=== PATIENT | female | born 1980 | race African-American/Black ===

== ENCOUNTER 2020-06-15 10:07 | Emergency (ER) | payer SELFPAY ==
[~2020-06-15] VITALS: Ht 170.2 cm; Wt 63.0 kg
[2020-06-15 10:13] VITALS: BP 138/84; Ht 170.2 cm; Wt 63.0 kg
== END 2020-06-15 11:40 | disposition home or self-care (01) ==
LOC: ED 10:07
DX: S01.81XD Laceration without foreign body of other part of head, subsequent encounter (principal); Z90.710 Acquired absence of both cervix and uterus; X58.XXXD Exposure to other specified factors, subsequent encounter